=== PATIENT | female | born 1955 | race Caucasian/White ===

== ENCOUNTER 2019-12-09 10:13 | Outpatient (CLI) | payer OTHER, SELFPAY ==
[2019-12-09 10:55] LABS: Hemoglobin A1C 5.3 % (<5.7)
[2019-12-09 10:56] LABS: Alanine Aminotransferase 33 U/L (4-35); Albumin Level 4.4 g/dL (3.5-5.1); Alkaline Phosphatase 48 U/L (38-126); Anion Gap 7 mmol/L (8-16); Aspartate Amino Transferase 32 U/L (14-36); Bilirubin,Total 0.8 mg/dL (0.2-1.3); Blood Urea Nitrogen 14 mg/dL (7-17); Calcium 9.9 mg/dL (8.4-10.2); Carbon Dioxide 33 mmol/L (22-30); Chloride 104 mmol/L (98-107); Cholesterol 213 mg/dL (0-200); Estimated Glomerular Filt Rate > 60; Glucose 112 mg/dL (65-105); HDL Direct 39 mg/dL; Potassium 3.9 mmol/L (3.4-5.0); Sodium 144 mmol/L (137-145); Triglycerides 327 mg/dL (<150)
[2019-12-09 11:08] LABS: LDL Cholesterol Direct 112 mg/dL
[2019-12-09 11:30] LABS: Vitamin D 25 Hydroxy 52.4 ng/mL
== END 2019-12-09 10:14 | disposition home or self-care (01) ==
LOC: ANHLAB 10:15
PROVIDERS: PCP Internal Medicine; Visit Provider Nurse Practitioner
DX: E78.5 Hyperlipidemia, unspecified (principal); M81.0 Age-related osteoporosis without current pathological fracture; E03.9 Hypothyroidism, unspecified; R73.01 Impaired fasting glucose
CPT/HCPCS: 36415; 80053; 80061; 82306; 83036; 84443

== ENCOUNTER 2019-12-20 12:56 | Outpatient (CLI) | payer OTHER, SELFPAY ==
--- NOTE | ~2019-12-20 | MR_ITS ---
EXAMINATION: MR cervical spine wo con DATE: 12/20/2019 13:52 INDICATION: Cervical radiculopathy. TECHNIQUE: Magnetic resonance imaging (MRI) of the cervical spine was performed without intravenous c ontrast. Sequences included sagittal T2-weighted FSE, sagittal STIR FSE, sagittal T1-weighted FSE, ax ial MERGE, and axial T2-weighted FSE. COMPARISON: None FINDINGS: There is 13 degrees levoscoliosis of cervical spine. There is a segmentation anomaly at C5- C6 with interbody fusion and fusion of the right facet joint. Vertebral body heights are normal. Ther e is severely decreased disc height at C4-C5. The spinal cord signal intensity is normal. The followi ng disc levels are specifically discussed: C2-C3: The disc does not extend beyond the endplate margin. There is no uncovertebral joint osteoarth ritis. There is ankylosis of right facet joint with mild hypertrophy. There is no neural foraminal st enosis. There is no central canal stenosis. C3-C4: The disc does not extend beyond the endplate margin. There is no uncovertebral joint osteoarth ritis. There is mild right facet joint osteoarthritis. There is ankylosis of left facet joint with mi ld hypertrophy. There is no neural foraminal stenosis. There is no central canal stenosis. C4-C5: The disc is bulging. There is severe right and mild left uncovertebral joint osteoarthritis. T here is mild right facet joint osteoarthritis. There is severe right neural foraminal stenosis. There is mild central canal stenosis with ventral indentation of the spinal cord. C5-C6: The disc does not extend beyond the endplate margin. There is no uncovertebral joint osteoarth ritis. There is no facet joint hypertrophy. There is no neural foraminal stenosis. There is no centra l canal stenosis. C6-C7: The disc does not extend beyond the endplate margin. There is mild left uncovertebral joint os teoarthritis. There is severe right facet joint osteoarthritis. There is mild bilateral neural forami nal stenosis. There is no central canal stenosis. C7-T1: The disc does not extend beyond the endplate margin. There is no uncovertebral joint osteoarth ritis. There is severe right and mild left facet joint osteoarthritis. There is mild bilateral neural foraminal stenosis. There is no central canal stenosis. IMPRESSION: 1. Severe cervical spondylosis. 2. 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 Ankylosis of facet joints at C2-C3 and C3-C4. Reviewed, dictated and finalized at location A.
== END 2019-12-20 12:57 | disposition home or self-care (01) ==
PROVIDERS: PCP Internal Medicine; Visit Provider Internal Medicine
DX: M47.22 Other spondylosis with radiculopathy, cervical region (principal)
CPT/HCPCS: 72141

== ENCOUNTER 2019-12-23 15:54 | Outpatient (CLI) | payer OTHER, SELFPAY ==
--- NOTE | ~2019-12-23 | MM_ITS ---
EXAMINATION: MM screening [facility] BI w [place] HISTORY: Screening mammogram TECHNIQUE: Craniocaudal and mediolateral oblique 3-D tomosynthesis images were obtained and synthetic 2-D images were generated. CAD analysis was submitted and interpreted. COMPARISON: Comparison to multiple prior studies sequentially, with oldest reviewed study dated 06/22. BREAST PARENCHYMAL COMPOSITION: There are scattered areas of fibroglandular density. FINDINGS: No significant change to benign-appearing bilateral breast nodules. There is no evidence of suspicious mass, calcification, or architectural distortion to suggest malignancy in either breast. There has been no suspicious interval change. IMPRESSION: 1. No mammographic evidence of malignancy. 2. Recommend routine screening mammography in one year. BI-RADS Category 2: Benign finding(s). Reviewed, dictated and finalized at location A. S MANAGER
== END 2019-12-23 15:55 | disposition home or self-care (01) ==
LOC: ANHIMG 15:56
PROVIDERS: PCP Internal Medicine; Visit Provider Internal Medicine
DX: Z12.31 Encounter for screening mammogram for malignant neoplasm of breast (principal)
CPT/HCPCS: 77063; 77067

== ENCOUNTER 2020-09-03 11:50 | Outpatient (CLI) | payer OTHER, SELFPAY ==
--- NOTE | ~2020-09-03 | DEXA_ITS ---
Bone Density Report Name: Laura Frey Age: 65 Sex: Female Ethnicity: White Date of : 1955 Indication: osteopenia; monitoring treatment; hyperparathyroidism; parental hip fracture; postmenopausal Referring Provider: Indy Vizcarra Study: Bone densitometry was performed. Exam Date: September 03, 2020 Accession number: [id number] Bone Density: Region BMD T-score Z-score Classification AP Spine (L2, L3) 0.930 -1.2 0.6 Osteopenia Femoral Neck (Left) 0.542 -2.8 -1.3 Osteoporosis Total Hip (Left) 0.877 -0.5 0.6 Normal Total Hip Bilateral Avg 0.872 -0.6 0.6 Normal Femoral Neck (Right) 0.778 -0.6 0.8 Normal Total Hip (Right) 0.866 -0.6 0.5 Normal World Health Organization criteria for BMD impression classify patients as: Normal (T-score at or above -1.0), Osteopenia (T-score between -1.0 and -2.5), or Osteoporosis (T-score at or below -2.5). 10-year Fracture Risk: FRAX not reported because: Some T-score for Spine Total or Hip Total or Femoral Neck at or below -2.5 Treated for osteoporosis Previous Exams: Region Exam Age BMD T-score BMD Change BMD Change Date g/cm2 vs Baseline vs Previous AP Spine(L2, L3) 09/03/2020 65 0.930 -1.2 -0.021(-2.2%)# 0.059(6.8%)* 04/02/2015 59 0.871 -1.7 -0.080(-8.4%)# -0.080(-8.4%)# 01/26/2008 52 0.951 -1.0 Total Hip(Left) 09/03/2020 65 0.877 -0.5 0.134(18.0%)# 0.035(4.1%)* 07/15/2018 62 0.843 -0.8 0.099(13.4%)# 0.109(14.8%)* 04/02/2015 59 0.734 -1.7 -0.009(-1.3%)# -0.009(-1.3%)# 01/26/2008 52 0.743 -1.6 Total Hip(Right) 09/03/2020 65 0.866 -0.6 0.067(8.4%)# 0.019(2.2%) 07/15/2018 62 0.847 -0.8 0.049(6.1%)# 0.069(8.8%)* 04/02/2015 59 0.779 -1.3 -0.020(-2.5%)# -0.020(-2.5%)# 01/26/2008 52 0.799 -1.2 *Denotes significance at 95% confidence level, LSC for AP Spine = 0.022 g/cm2, LSC for Total Hip = 0.027 g/cm2 Clinical Information Provided by Patient: Parent has had a hip fracture Is being treated for osteoporosis Has used the following medications: Vitamin D, Calcium Has the following medical conditions: Hyperparathyroidism Patient maximum height was 68.5 Menopause Age: 52 No regular weight bearing exercise Does not regularly consume dairy products Onset of menses at age 13 Number of children 2 Impression: The patient has osteoporosis, based on the Left Femoral Neck T-score. The patient has risk factors, including: parental hip fracture. No signi
== END 2020-09-03 11:51 | disposition home or self-care (01) ==
LOC: ANHIMG 11:51
PROVIDERS: PCP Internal Medicine; Visit Provider Nurse Practitioner
DX: M81.0 Age-related osteoporosis without current pathological fracture (principal); M85.88 Other specified disorders of bone density and structure, other site
CPT/HCPCS: 77080

== ENCOUNTER → 2020-10-23 02:36 | Outpatient (CLI) | payer OTHER, SELFPAY ==
[2020-10-23 19:55] LABS: SARS-CoV-2 RNA PCR Negative
== END ==
PROVIDERS: PCP Internal Medicine; Visit Provider Nurse Practitioner
DX: Z20.822 Contact with and (suspected) exposure to COVID-19 (principal)
CPT/HCPCS: C9803; U0003; U0005

== ENCOUNTER → 2020-11-03 02:35 | Outpatient (CLI) | payer OTHER, SELFPAY ==
[2020-11-03 19:28] LABS: SARS-CoV-2 RNA PCR Positive
== END ==
PROVIDERS: Nurse Practitioner; PCP Internal Medicine; Visit Provider Internal Medicine
DX: U07.1 COVID-19 (principal)
CPT/HCPCS: C9803; U0003; U0005

== ENCOUNTER 2020-11-07 09:33 | Outpatient (RCR) | payer OTHER, SELFPAY ==
[2020-11-07] MEDS: ACETAMINOPHEN 325 MG TABLET 650 MG PO (14:03)
[2020-11-07] MEDS: FAMOTIDINE 20 MG TABLET PO (14:03)
[2020-11-07 14:43] VITALS: BP 132/76; PULSE 89; RESP 20; TEMP 37; O2SAT 96
--- NOTE | 2020-11-07 15:01 | PCDIET ---
patient refused Benadryl related to her hypothyroidism.
[2020-11-07 15:41] VITALS: BP 127/81
== END 2020-11-07 15:20 | disposition home or self-care (01) ==
LOC: AMCINF 09:33
PROVIDERS: PCP Nurse Practitioner; Referring Provider Nurse Practitioner; Visit Provider Internal Medicine Hematology & Oncology
DX: Z23 Encounter for immunization (principal); U07.1 COVID-19; I25.10 Atherosclerotic heart disease of native coronary artery without angina pectoris
CPT/HCPCS: A9270; J7050; M0243

== ENCOUNTER → 2021-02-15 00:52 | Outpatient (CLI) | payer OTHER, SELFPAY ==
[2021-02-15 19:19] LABS: SARS-CoV-2 RNA PCR Negative
== END ==
PROVIDERS: PCP Nurse Practitioner
DX: R68.89 Other general symptoms and signs (principal); Z20.822 Contact with and (suspected) exposure to COVID-19
CPT/HCPCS: C9803; U0003; U0005

== ENCOUNTER 2021-07-24 08:35 | Outpatient (CLI) | payer MEDICARE, MEDICAID, SELFPAY ==
--- NOTE | ~2021-07-24 | US_ITS ---
US abdomen limited INDICATION: Left upper abdominal pain PROCEDURE: Realtime left upper abdominal ultrasound. COMPARISON: No prior studies for comparison. FINDINGS: Splenic echotexture is normal without mass. Spleen measures 11.4 cm in length. There is a s mall left renal cyst. No solid masses, hydronephrosis or renal stones. Left kidney measures 13.7 cm i n length. No ascites. IMPRESSION: 1: No significant abnormality of the left upper abdomen is identified. Reviewed, dictated and finalized at location A.
== END 2021-07-24 08:36 | disposition home or self-care (01) ==
LOC: ANHIMG 08:41
PROVIDERS: PCP Nurse Practitioner; Visit Provider Nurse Practitioner
DX: R10.12 Left upper quadrant pain (principal)
CPT/HCPCS: 76705

== ENCOUNTER → 2021-08-06 00:19 | Outpatient (CLI) | payer MEDICARE, MEDICAID, SELFPAY ==
[2021-08-06 16:55] LABS: SARS-CoV-2 RNA PCR Positive
== END ==
PROVIDERS: PCP Internal Medicine; Visit Provider Internal Medicine
DX: U07.1 COVID-19 (principal)
CPT/HCPCS: C9803; U0003; U0005

== ENCOUNTER 2021-08-21 16:16 | Outpatient (CLI) | payer MEDICARE, MEDICAID, SELFPAY ==
--- NOTE | ~2021-08-21 | MM_ITS ---
EXAMINATION: MM screening [facility] BI w [place] HISTORY: Screening TECHNIQUE: Craniocaudal and mediolateral oblique 3-D tomosynthesis images were obtained and synthetic 2-D images were generated. CAD analysis was submitted and interpreted. COMPARISON: Comparison to multiple prior studies sequentially, with oldest reviewed study dated 09/2015. BREAST PARENCHYMAL COMPOSITION: There are scattered areas of fibroglandular density. FINDINGS: There is no evidence of suspicious mass, calcification, or architectural distortion to sugg est malignancy in either breast. There has been no suspicious interval change. IMPRESSION: 1. No mammographic evidence of malignancy. 2. Recommend routine screening mammography in one year. BI-RADS Category 1: Negative Reviewed, dictated and finalized at location A.
== END 2021-08-21 16:17 | disposition home or self-care (01) ==
PROVIDERS: PCP Internal Medicine; Visit Provider Nurse Practitioner
DX: Z12.31 Encounter for screening mammogram for malignant neoplasm of breast (principal)
CPT/HCPCS: 77063; 77067

== ENCOUNTER 2022-08-18 12:46 | Outpatient (CLI) | payer MEDICARE, MEDICAID, SELFPAY ==
--- NOTE | ~2022-08-18 | DEXA_ITS ---
Bone Density Report Name: ERNA BURNS Age: 67 Sex: Female Ethnicity: White Date of : 1955 Indication: hyperparathyroidism; parental hip fracture; height loss; inflammatory bowel disease; postmenopausal Referring Provider: URSULA FREEMAN Study: Bone densitometry was performed. Exam Date: August 18, 2022 Accession number: [id number] Bone Density: Region BMD T-score Z-score Classification AP Spine(L1-L4) 0.899 -1.3 0.5 Osteopenia Femoral Neck (Left) 0.551 -2.7 -1.1 Osteoporosis Total Hip (Left) 0.870 -0.6 0.7 Normal Femoral Neck (Right) 0.675 -1.6 0.0 Osteopenia Total Hip (Right) 0.863 -0.6 0.6 Normal Total Hip Mean 0.866 -0.6 0.7 Normal World Health Organization criteria for BMD impression classify patients as: Normal (T-score at or above -1.0), Osteopenia (T-score between -1.0 and -2.5), or Osteoporosis (T-score at or below -2.5). 10-year Fracture Risk: FRAX not reported because: Some T-score for Spine Total or Hip Total or Femoral Neck at or below -2.5 Previous Exams: Region Exam Age BMD T-score BMD Change BMD Change Date g/cm2 vs Baseline vs Previous Total Hip(Left) 08/18/2022 67 0.870 -0.6 0.136 (18.5%)* -0.008 (-0.9%) 09/03/2020 65 0.877 -0.5 0.144 (19.6%)* 0.035 (4.1%)* 07/15/2018 62 0.843 -0.8 0.109 (14.8%)* 0.109 (14.8%)* 04/02/2015 59 0.734 -1.7 Total Hip(Right) 08/18/2022 67 0.863 -0.6 0.084 (10.8%)* -0.003 (-0.4%) 09/03/2020 65 0.866 -0.6 0.087 (11.2%)* 0.019 (2.2%) 07/15/2018 62 0.847 -0.8 0.069 (8.8%)* 0.069 (8.8%)* 04/02/2015 59 0.779 -1.3 *Denotes significance at 95% confidence level, LSC for Total Hip = 0.027 g/cm2 Clinical Information Provided by Patient: Parent has had a hip fracture Has used the following medications: Vitamin D Has the following medical conditions: Inflammatory bowel diseases, Hyperparathyroidism Patient maximum height was 68.5 Menopause Age: 52 No regular weight bearing exercise Does not regularly consume dairy products Onset of menses at age 13 Number of children 2 Impression: The patient has osteoporosis, based on the Left Femoral Neck T-score. The patient has risk factors, including: parental hip fracture. No significant bone loss was observed. Discussion: INCREASED RISK OF FRACTURE. BONE DENSITY IS UNDESIRABLY LOW AT ONE OR MORE SKELETAL SITES, CONSISTENT WITH POSTMENOPAUSAL OSTEOPOROSIS. This patient's lowest T-score meets the World Health Organization's (WHO) cri
== END 2022-08-18 12:47 | disposition home or self-care (01) ==
LOC: ANHIMG 12:48
PROVIDERS: PCP Family Medicine; Visit Provider Family Medicine
DX: M81.0 Age-related osteoporosis without current pathological fracture (principal); M85.88 Other specified disorders of bone density and structure, other site; M85.851 Other specified disorders of bone density and structure, right thigh
CPT/HCPCS: 77080

== ENCOUNTER 2023-11-26 14:45 | Outpatient (CLI) | payer MEDICARE, MEDICAID, SELFPAY ==
--- NOTE | ~2023-11-26 | MM_ITS ---
EXAMINATION: MM screening [facility] BI w [place] HISTORY: Screening TECHNIQUE: Craniocaudal and mediolateral oblique 3-D tomosynthesis images were obtained and synthetic 2-D images were generated. CAD analysis was submitted and interpreted. COMPARISON: Comparison to multiple prior studies sequentially, with oldest reviewed study dated 09/2015. BREAST PARENCHYMAL COMPOSITION: There are scattered areas of fibroglandular density. FINDINGS: There is no evidence of suspicious mass, calcification, or architectural distortion to sugg est malignancy in either breast. There has been no suspicious interval change. IMPRESSION: 1. No mammographic evidence of malignancy. 2. Recommend routine screening mammography in one year. BI-RADS Category 1: Negative Reviewed, dictated and finalized at location B.
== END 2023-11-26 14:46 | disposition home or self-care (01) ==
PROVIDERS: PCP Family Medicine; Visit Provider Family Medicine
DX: Z12.31 Encounter for screening mammogram for malignant neoplasm of breast (principal)
CPT/HCPCS: 77063; 77067

== ENCOUNTER 2024-05-30 16:02 | Outpatient (CLI) | payer MEDICARE, MEDICAID, SELFPAY ==
--- NOTE | ~2024-05-30 | XR_ITS ---
XR tibia fibula LT 2V 05/30/2024 16:42 Indication: Follow-up left leg fractures Procedure: 2 views left tibia/fibula Comparison: No prior studies for comparison. Findings: There is a tibial diaphyseal comminuted minimally displaced fracture transfixed by intramed ullary ruben with 2 proximal and 2 distal interlocking screws. Fracture fragments in near-anatomic alig nment. There is a comminuted distal fibular metadiaphyseal fracture with mild ventral displacement. N o significant callus formation at the fibular fracture. Impression: 1: Near-anatomic alignment of distal tibial diaphyseal fracture transfixed by intramedullary ruben. 2: Mildly displaced comminuted extra-articular fracture distal fibular metadiaphysis. Reviewed, dictated and finalized at location A. Impression: 1: Near-anatomic alignment of distal tibial diaphyseal fracture transfixed by i ntramedullary ruben. 2: Mildly displaced comminuted extra-articular fracture distal fibular metadia physis.
--- NOTE | ~2024-05-30 | XR_ITS ---
Lumbosacral Spine: AP and lateral views Clinical History: Pain Findings: There is mild levoscoliosis. No fracture or subluxation evident. There are mild degenerativ e changes. There is moderate facet arthropathy at the lower lumbar spine. There are 2 rounded soft ti ssue calcifications in the right mid abdomen. The sacroiliac joints are normally outlined. Impression: [id number] degenerative spondylosis. 2 rounded calcifications in the right mid abdomen. Correlate for cholelithiasis versus nephrolithiasi s. Reviewed, dictated and finalized at location M. Impression: [id number] degenerative spondylosis. 2 rounded calcifications in the right mid abdomen. Correlate for cholelithiasis versus nephrolithiasis.
--- NOTE | ~2024-05-30 | XR_ITS ---
Supine and upright views of the abdomen Clinical history: Abdominal pain Findings: Bowel gas pattern is nonspecific. No evidence for obstruction or free air. 2 round calcific ations and right upper quadrant suggest gallstones. Osseous structures are intact. Impression: Probable cholelithiasis versus possibly nephrolithiasis. Right upper quadrant ultrasound should be co nsidered for further evaluation. Reviewed, dictated and finalized at [facility]. Impression: Probable cholelithiasis versus possibly nephrolithiasis. Right upper quadrant u ltrasound should be considered for further evaluation.
== END 2024-05-30 16:03 | disposition home or self-care (01) ==
LOC: MICIMG 16:09
PROVIDERS: PCP Family Medicine; Visit Provider Family Medicine
DX: S82.832A Other fracture of upper and lower end of left fibula, initial encounter for closed fracture (principal); K59.00 Constipation, unspecified; M54.50 Low back pain, unspecified; X58.XXXA Exposure to other specified factors, initial encounter; M47.896 Other spondylosis, lumbar region
CPT/HCPCS: 72100; 73590; 74021

== ENCOUNTER 2024-09-01 08:01 | Outpatient (CLI) | payer MEDICARE, MEDICAID, SELFPAY ==
--- NOTE | ~2024-09-01 | CT_ITS ---
CT of the Abdomen and Pelvis: Indication: Diarrhea Technique: 2.5 mm axial scans were obtained through the abdomen and pelvis following intravenous adm inistration of 100 cc of Omnipaque 350. Dose reduction technique was used on this scan by utilizing a utomated exposure control and iterative reconstruction technique. The dose-length product (DLP) was 1 414.03 mGy-cm. Findings: Scans through the lung bases are unremarkable. The liver, spleen, pancreas, adrenals and kidneys are within normal limits. Calcified gallstone prese nt. No evidence of aortic aneurysm. No lymphadenopathy. No bowel obstruction or bowel wall thickening. There is no evidence to suggest acute appendicitis. Images through the pelvis were performed. Urinary bladder unremarkable. No pelvic mass seen. No ascit es. Impression: No acute abnormality. Cholelithiasis. Reviewed, dictated and finalized at location . Impression: No acute abnormality. Cholelithiasis.
--- OUTSIDE RECORDS SUMMARY | 2024-09-01 08:07 | XMS_ITS | Clinical Summary ---
Author Organization [facility] [employer] Address [address] [place] [address] Care Team Providers Care It Desktop Support Specialist Name Role Phone Cortes Zapata MD Primary Care Provider [phone] Source Comments [facility] [employer]non-owned Affiliates and Associated Physician Practices is amultiple site organization consisting of ambulatory clinics and hospital sitesin [place], [place], [place]. This disclosure is being madepursuant to the Care Everywhere program and may not contain all information available regarding this patient. Last updated 17.[facility] [employer] Allergies Active Allergy Reactions Criticality Noted Date Comments Sulfa Drugs Skin Reactions Low 03/31/2017 Other reaction(s): Other (See Comments) [place] with urination Tetracycline Rash,Unknown Medium 01/18/2016 Medications * Be aware that medications may not be up to date on this document. Alwaysverify current medications with the patient. famotidine (PEPCID) 40 MG tablet Take 40 mg by mouth as needed for Heartburn Active aspirin EC (Ecotrin) 81 MG tablet Take 1 tablet every day by oral route. Active levothyroxine (Synthroid) 125 MCG tabletIndicati ons:Hypothyroi dism Take 1 (one) tablet by mouth daily before breakfast Reasons: Underactive Thyroid Active vitamin D, ergocalciferol , (Drisdol) 1.25 MG (07732 UT) capsule Take 5,000 Units by mouth once daily Active ibuprofen (Motrin) 200 MG tabletIndicati ons:Arthritis Take by mouth every 6 hours as needed for Pain Reasons: Arthritis Active Bicknell-3 Fatty Acids (Fish Oil) 1200 MGIndications: Hyperlipidemia Take 1 tablet by mouth once daily Reasons: High Amount of Fats in the Blood Active alendronate (FOSAMAX) 70 MG tablet Take 1 (one) tablet by mouth every 7 days before meal Take in morning with full glass of water on empty stomach and remain upright for 30 min 12 tablet 4 9 08/10/19 25 Discontin ued(List Clean-Up) Active Problems Problem Noted Date Diagnosed Date Centrilobular emphysema 07/26/2018 Non morbid obesity 07/26/2018 KELLI (obstructive sleep apnea) 07/26/2018 Acquired hypothyroidism 01/05/2018 Acute non-ST segment elevation myocardial infarc tion 08/06/2017 Dyslipidemia 08/06/2017 Essential hypertension 08/06/2017 History of cardiac catheterization 08/06/2017 Overview (08/10/2023): 2007 and 06/2017- no significant CAD. History of parathyroidectomy 08/06/2017 Overview (08/10/2023): pt followed by environmental intern Primary hyperparathyroidism 06/04/2017 Hypothyroidism Hyperlipidemia Encounters Date Type Department Care Team Description 2024 Travel 08/12/2024 Telephone [facility] - Centralized Scheduling [address] [place] [phone] Wilfredo Calabrese MD Reschedule Appointment 08/11/2024 Telephone [facility] - Centralized Scheduling [address] [place] [phone] Wilfredo Calabrese MD Reschedule Appointment 08/10/2024 Telephone [facility] - Centralized Scheduling [address] [place] [phone] Wilfredo Calabrese MD Reschedule Appointment 08/09/2024 9:20 AM CDT Office Visit [facility] - Endocrinology [address] [place] [phone] Wilfredo Calabrese MD History of parathyroidectomy (Primary Dx); Primary hyperparathyroidism (HCC); Acquired hypothyroidism 08/09/2024 Travel from Last 3 Months Family History Medical History Relation Name Comments CAD (Coronary Artery Disease) Father Arthritis - Osteo Mother CAD (Coronary Artery Disease) Mother COPD - Chronic Obstructive Pulmonary Disease Mother Cancer - Colon Mother Diabetes - Type 2 Mother Renal Disease Mother Thyroid Disease Other cousion Diabetes - Type 1 Paternal Grandmother Diabetes - Type 2 Paternal Uncle Congenital Heart defect Sister Lupus Sister Relation Name Status Comments Father Mother Other cousion Alive Paternal Grandmother Paternal Uncle Sister Alive Social History Tobacco Use Types Packs/Day Years Used Date Smoking Tobacco: Former Smokeless Tobacco: Never Tobacco Cessation:Counseling Given: Not Answered Alcohol Use Standard Drinks/Week Comments No 0 (1 standard drink = 0.6 oz pur e alcohol) PHQ-2 Answer Date Recorded Patient Health Questionnaire-2 Score 0 08/09/2024 Comments No Sex and Gender Information Value Date Recorded Sex Assigned at Not on file Legal Sex Female 3:40 PM [employer]OTIVE [employer]ICE [employer] Gender Identity Not on file Sexual Orientation Not on file Last Filed Vital Signs Vital Sign Reading Time Taken Comments Blood Pressure 134/84 08/09/2024 9:14 AM CDT Pulse 64 08/09/2024 9:14 AM CDT Temperature 36 C (96.8 F) 01/05/2018 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 Respiratory Rate 14 01/05/2018 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 Oxygen Saturation 94% 08/09/2024 9:14 AM CDT Inhaled Oxygen Concentration - - Weight 107.5 kg (237 lb) 08/09/2024 9:14 AM CDT Height 172.7 cm (5' 8) 01/17/2019 3:34 PM AUTOMOTIVE SERVICE DIRECTOR Body Mass Index 36.04 01/17/2019 3:34 PM AUTOMOTIVE SERVICE DIRECTOR Plan of Treatment Upcoming Encounters Date Type Department Care Team (Late st Contact Info) Description 02/10/2025 11:00 AM AUTOMOTIVE SERVICE DIRECTOR Office Visit [facility] - Endocrinology [address] [place] [address], [place] [phone] Wilfredo Calabrese MD [address] [place] [address] [place] [phone] Health Maintenance Due Date Last Done Comments BONE DENSITY TESTING 1955 COLOGUARD (AGES 45-75) - COL ON CA SCREENING 1956 COLON MONITORING 1956 COLONOSCOPY - COLON CA SCREENING 1956 CT COLONOGRAPHY - COLON CA SCREENING 1956 Colorectal Cancer Screening 1956 FIT - COLON CA SCREENING 1956 FLEX SIG - COLON CA SCREENING 1956 MAMMOGRAM 1955 MEDICARE AWV 12 MONTHS 1956 HEPATITIS C SCREENING 08/13/1974 DTAP/TDAP/TD VACCINES (1 - Tdap) 08/18/1975 PNEUMOCOCCAL VACCINE 50+ (1 of 2 - PCV) 08/18/1975 ZOSTER VACCINE (1 of 2) 2006 Respiratory Syncytial Virus (RSV) Vaccine Pt: or over 60 yrs (1 - Risk 60-74 years 1-dose series) 2016 COVID-19 VACCINE ( - 2023-2 5 season) 2023 INFLUENZA VACCINE (#1) 2024 DEPRESSION SCREENING Completed 08/09/2024 HEPATITIS B VACCINE Aged Out No longe r eligible based on patient's age to complete this topic HIB VACCINE Aged Out No longer eligi ble based on patient's age to complete this topic HPV VACCINE Aged Out No longer eligi ble based on patient's age to complete this topic MENINGOCOCCAL (Group B) VACC INE SHARED DECISION-MAKING Aged Out No longer eligibl e based on patient's age to complete this topic MENINGOCOCCAL GROUPS A/C/Y/W VACCINE Aged Out No longer eligible b ased on patient's age to complete this topic Insurance MEDICARE MEDICARE MEDICAID - OUT OF STATE Advance Directives * Full Code (Latest Code Status on File) Date Activated Date Inactivated Comments 06/04/2017 5:15 PM 06/05/2017 3:30 PM * Full Code Date Activated Date Inactivated Comments 06/04/2017 11:14 AM 06/04/2017 5:15 PM Care Teams It Desktop Support Specialist Relationship Specialty Start Date End Date Cortes Zapata MD [address] [place] [phone] PCP - General Family Medicine 04/20/23
--- OUTSIDE RECORDS SUMMARY | 2024-09-01 08:07 | XMS_ITS | Data Portability ---
Author Organization [place] - [facility] OFFICE Address [address] [place] [id number] Care Team Providers Care Assistant Health Educator Name Role Phone JEAN PIERRE SURESH Primary Care Provider Assessment No assessment recorded. Plan of Treatment Reminders Order Date Submit Date Provider Last Modified By Organization Details Last Modified Time Details Appointments None recorded . Lab None recorded . Referral None recorded . Procedures None recorded . Surgeries None recorded . Imaging electroc ardiogra m 2017 018 nurbanski Not available 8 18:07:38 electroc ardiogra m 2017 018 [email or web address] Not available 8 14:05:28 electroc ardiogra m 2017 018 RERE Not available 8 16:13:09 Medication Orders simvasta tin 40 mg tablet 2017 018 [facility] [id number], [address], 8 18:07:39 metoprol ol succinat e ER 25 mg tablet,e xtended release 24 hr 2017 018 [facility] [address], [address], 8 18:07:40 simvasta tin 40 mg tablet 2017 018 [email or web address] [facility] [address], [address], 8 17:11:32 Livalo 2 mg tablet 2017 018 nleinicke [facility] In [facility], [address] [place], [address], 8 15:15:50 Vascepa 1 gram capsule 2017 018 apeludat [facility] In [facility], [address] [place], [address], 8 15:46:10 Patient TargetsNo targets recorded. Patient Instructions Encounter Date Encounter Id Patient Instructions Last Modified By Organization Details Last Modified Time 08/06/2017 [id number] high blood pressure: care instructions [email or web address] Not available 08/06/2017 16:35:12 learning about high blood pressure nurbanski Not available 08/06/2017 16:35:12 This document wa s scribed by Arlette Godoy PA-C. [email or web address] Not available 08/06/2017 15:24:00 10/08/2017 [id number] high blood pressure: care instructions apeludat Not available 10/08/2017 16:05:25 learning about high blood pressure apeludat Not available 10/08/2017 16:05:25 Weight loss, 20 pounds Exercise advised Low cholesterol diet advised Low sodium diet advised. Patient was seen and evaluated by Arlette Godoy PA-C. Plan of care was discussed with collaborating physician. Note cosigned by Oscar Arellano MD. apeludat Not available 10/08/2017 16:34:22 01/28/2018 [id number] high blood pressure: care instructions [email or web address] Not available 01/28/2018 18:07:38 learning about high blood pressure nurbanski Not available 01/28/2018 18:07:38 Reason for Referral None Reported. Results Created Date Observation Date Name Description Value Unit Range Abnormal Flag Note LastModifiedBy Organization Detail LastModifiedTime 08/07/19 18 08/06/2017 chantal leong diogr am Result EKG (08/06): NSR, IRBBB, NSSTch anges Not Available Oscar Arellano MD [address], [place], [address], 08/06/2017 14:59:44 01/29/20 18 01/28/2018 elect rocar diogr am Result EKG ;Incom plete rbbb Invert ed T waves, anteri or leads. Not Available Oscar Arellano MD [address], [place], [address], 01/28/2018 17:13:28 07/21/19 18 07/09/2017 trans -thor acic echoc ardio gram (TTE) (PROC ) No observ ation record ed. [facility] [address], [place], [address], 10/08/2017 14:04:04 08/07/19 18 08/06/2017 elect rocar diogr am No observ ation record ed. [email or web address] Not Available 2017 10:33:43 08/08/19 18 08/06/2017 elect rocar diogr am No observ ation record ed. [email or web address] Not Available 2017 09:33:12 09/19/19 18 07/09/2017 elect rocar diogr am No observ ation record ed. [email or web address] Not Available 2017 14:15:10 01/30/20 18 01/28/2018 elect rocar diogr am No observ ation record ed. [email or web address] Not Available 2017 11:17:17 Result Notes None recorded. Problems Name Problem SNOMED Code Status Onset Date Resolution Date Notes Provider Name and Address Organization Details Recorded Time Ex-smoker 6508084 Active 2017 Arya duran [place] - [facility] 8 14:03:47 Chest pain 45730934 Active 2017 Arya duran [place] - [facility] 8 14:04:03 Pulmonary embolism 28542622 Active 2007 Michi duran, [place] - [facility] 8 15:47:24 Hypothyro idism 57306342 Active 2017 Arya duran [place] - [facility] 8 14:04:46 History of cardiac catheteri zation 997653564177 00 Active 2017 and 06/2017- no significa nt CAD. Arlette Godoy [facility] 8 15:06:16 History of parathyro idectomy 111320045592 103 Active 2017 pt followed by endocrino logist Michi Agudelo [facility] 8 16:00:22 Acute non-ST segment elevation myocardia l infarctio n 949289810 Active 2017 Indra Mcdermott [facility] 8 01:57:10 Dyslipide [place] 920520572 Active 2017 Indra Mcdermott [facility] 8 01:57:18 Essential hypertens ion 56146103 Active 2017 Arlette Godoy [facility] 8 15:05:46 Former heavy tobacco smoker 071816897057 100 Active 2017 Arlette Godoy [facility] 8 16:34:47 Problem Notes None recorded. Medical Equipment None Reported. Allergies Allergen ID Allergen Name Allergen Category Reaction Reaction Severity Criticality Documentation Date Start Date Code Code System Note Provider Name and Address Organization Details Recorded Time 6346 Substance with sulfonami de structure and antibacte rial mechanism of action (substanc e) medicatio n Not available Not available Not available 08/06/2017 84883 8003 SNOMED Indra Mcdermott [facility] 8 01:58:22 6347 tetracycl ine medicatio n Not available Not available Not available 08/06/2017 97508 RxNorm Indra Mcdermott [facility] 8 01:58:36 Medications Name Sig Start Date Stop Date Status Note LastModified by Organization Details LastModified Time losartan 50 mg tablet Take 1 tablet every day by oral route. 10/08 completed Not Available Not Available Not Available cyclobenzap rine 10 mg tablet 08/06 completed Not Available Not Available Not Available Tylenol 500 mg capsule Take 2 tablets every 4 hours by oral route. active Not Available Not Available No t Available hydrocodone 5 mg-acetamin ophen 325 mg tablet PRN active Not Available Not Available No t Available famotidine 40 mg tablet active Not Available Not Available Not Available Calcium Antacid 200 mg (as calcium carbonate 500 mg) chewable tablet 08/06 completed Not Available Not Available Not Available clopidogrel 75 mg tablet Take 1 tablet every day by oral route. 10/08 completed Not Available Not Available Not Available simvastatin 80 mg tablet 08/06 completed Not Available Not Available Not Available aspirin 81 mg tablet,sanchez yed release Take 1 tablet every day by oral route. active Not Available Not Available No t Available simvastatin 40 mg tablet Take 1 tablet every day by oral route. 2017 active Not Available Not Available Not Avai lable hyoscyamine sulfate 0.125 mg tablet active Not Available Not Available Not Available prednisone 50 mg tablet 08/06 completed Not Available Not Available Not Available Mapap (acetaminop hen) 325 mg tablet 08/06 completed Not Available Not Available Not Available aspirin 81 mg chewable tablet 08/06 completed Not Available Not Available Not Available metoprolol succinate ER 25 mg tablet,exte nded release 24 hr TAKE ONE TABLET BY MOUTH ONCE DAILY 2017 active Not Available Not Available Not Avai lable levothyroxi ne 112 mcg tablet Take 1 tablet every day by oral route. active Not Available Not Available No t Available Pepcid AC 20 mg tablet Take 1 tablet 3 times a day by oral route. 08/06 completed Not Available Not Available Not Available ClearLax 17 gram/dose oral powder 08/06 completed Not Available Not Available Not Available Livalo 2 mg tablet Take 1 tablet every day by oral route. 10/08 completed Not Available Not Available Not Available Vascepa 1 gram capsule Take 2 capsules twice a day by oral route. 10/08 completed Not Available Not Available Not Available Multi Vitamin active Not Available Not Available Not Available Vitals Date Recorded Body weight Body mass index (BMI) Body height Heart rate Oxygen saturation Oxygen saturation in Arterial blood by Pulse oximetry Systolic And Diastolic Provider Name and Address Organization Details Last Updated DateTime 8 571965. 43 g 35.3 kg/m2 172.72 cm 75 /min 95 % 95 % 120/78 mm[Hg] Ana Lilia Nichole [place] - [facility] 8 14:59:30 Date Recorded Body height Body mass index (BMI) Body weight Heart rate Oxygen saturation Oxygen saturation in Arterial blood by Pulse oximetry Systolic And Diastolic Provider Name and Address Organization Details Last Updated DateTime 8 172.72 cm 35.9 kg/m2 012782. 8 g 70 /min 96 % 96 % 112/76 mm[Hg] Ana Lilia Nichole [facility] 8 15:21:19 Date Recorded Body height Body mass index (BMI) Body weight Heart rate Oxygen saturation Oxygen saturation in Arterial blood by Pulse oximetry Systolic And Diastolic Provider Name and Address Organization Details Last Updated DateTime 8 172.72 cm 37 kg/m2 089044. 02 g 79 /min 95 % 95 % 138/88 mm[Hg] IJEOMA Ryan [facility] 8 17:13:25 Social History Question Answer Notes LastModified by Historic Futures Details LastModified Time Tobacco Smoking Status Former Smoker quit 2007 Not Available [facility] 12/27/2019 03:30:42 What Is Your Level Of Caffeine Consumption? None [id number] Information not available 12/27/2019 How Much Tobacco Do You Chew? None [id number] Information not available 12/27/2019 What Type Of Diet Are You Following? SPECIFIC [id number] Information not available 12/27/2019 Which Illicit Or Recreational Drugs Have You Used? None [id number] Information not available 12/27/2019 Live Alone Or With Others? With Others Information not available 08/06/2017 Marital Status Informatio n not available 08/06/2017 What Was The Date Of Your Most Recent Tobacco Screening? 10/08/2017 [id number] Information not available 12/27/2019 How Many Children Do You Have? 2 [id number] Information not available 12/27/2019 How Much Tobacco Do You Smoke? 2 PPD [id number] Information not available 12/27/2019 How Many Years Have You Smoked Tobacco? 33 [id number] Information not available 12/27/2019 Sex: Unknown Functional Status Question Answer Note LastModified by [employer] Details LastModified Time What is your level of alcohol consumption? Occasional [id number] Information not available 12/27/2019 What is your exercise level? None [id number] Information not available 12/27/2019 Mental Status None recorded. Family History Relationship Description Onset Age of this Age Resolved Age Notes LastModified by Organization Details LastModified Time Father Myocardial infarction 42 [email or web address] Not available 08/06 15:48:26 Mother Chronic obstructive pulmonary disease [email or web address] Not available 2017 14:06:12 Sister Mitral valve prolapse [email or web address] Not available 2017 14:06:30 Medical History No medical history recorded. Gynecological HistoryNo gynecological history recorded. Obstetrics History GPAL:G 0 P 0 0 0 0 Past Encounters Encounter ID Performer Location Encounter Start Date Encounter Closed Date Diagnosis/Indication Diagnosis SNOMED-CT Code Diagnosis ICD10 Code Diagnosis Note [id number] Michi Agudelo MD [facility] [address] [place] [address] 08/06/2017 14:27:34 08/18/2017 14:05:28 Acute non-ST segment elevation myocardial infarction 928778660 I21.4 06/2017 Had TTE done in 07/09/17 showed mild LVH and moderate right ventricula r hypertroph y. Had CATH done in 07/09/17 revealed No significan t coronary artery disease; normal left ventricula r systolic function.c ont medical management and risk factor modificati on Dyslipidemia 706048411 E 78.5 Patient's hyperlipid emia is not well-contr olled on present medical therapy. Patient is tolerating , without difficulty , the current medication s. I have made the following changes to the current regimensta rt Pitavastat in 2 mg QD and Vascepa 2000 BID.. Cont low cholestero l diet. Repeat lipids in 4 months. Needs to keep LDL less than 70, and HDL more than 40 07/09/17: TG 303, LDL 117, HDL 33 She stopped Simvastati n 80 mg, due to back pain. Would like lower dose. Essential hypertension 23494527 I10 Patient's blood pressure is well-contr olled on present medical therapy. Patient is tolerating , without difficulty , the current medication s. I have not made changes to the current regimen. Patient was advised to eat a low-sodium diet (2 grams sodium or less daily). Pulmonary embolism 48850 003 I26.99 11/2007onl y episode only [id number] Oscar Arellano MD [facility] [address] [place] [address] 10/08/2017 15:02:50 02/26/2018 10:35:16 Acute non-ST segment elevation myocardial infarction 812483282 I21.4 06/2017 Had Echo on 07/09/17 showing mild LVH and moderate right ventricula r hypertroph y. Had CATH on 07/09/17 revealing no significan t coronary artery disease; normal left ventricula r systolic function. Cont medical management and risk factor modificati on. Will discontinu e Plavix, she has been on it for 3 months and is asymptomat ic and cath showed no significan t CAD. She may have microvascu larization causing the NSTEMI, recommende d starting ASA 81 mg daily for prevention . Dyslipidemia 890183693 E 78.5 Patient's hyperlipid emia is not well-contr olled on present medical therapy. Patient is tolerating , without difficulty , the current medication s. I have made the following changes to the current regimen Needs to keep LDL less than 70, and HDL more than 40 07/09/17: TG 303, LDL 117, HDL 33 Will start on Simvastati n 40 mg once daily and will take Fish Oil daily. Cont low cholestero l diet. Repeat lipids before visit in 3 months. Essential hypertension 19814613 I10 Patient's blood pressure is well-contr olled on present medical therapy. Patient is tolerating , without difficulty , the current medication s. I have made the following changes to the current regimen. Patient is advised to maintain a blood pressure diary. Patient was advised to eat a low-sodium diet (2 grams sodium or less daily). Will stop the Losartan 50 mg and have the patient check her BP daily, she states she is having leg cramping from Losartan and states she has never had HTN before. Pulmonary embolism 60521 003 I26.99 11/2007 only episode only Former hea vy tobacco smoker [id number] 22554 Z87.891 Was smoking 2 PPD, quit 2007. [id number] Michi Agudelo MD [facility] [address] [place] [address] 01/28/2018 16:19:57 01/28/2018 18:07:44 Acute non-ST segment elevation myocardial infarction 286699472 I21.4 06/2017asym ptomatic.H ad Echo on 07/09/17 showing mild LVH and moderate right ventricula r hypertroph y. Had CATH on 07/09/17 revealing no significan t coronary artery disease; normal left ventricula r systolic function. Cont medical management and risk factor modificati on. Will discontinu e Plavix, she has been on it for 3 months and is asymptomat ic and cath showed no significan t CAD. She may have microvascu larization causing the NSTEMI, recommende d starting ASA 81 mg daily for prevention . Dyslipidemia 911928615 E 78.5 Patient's hyperlipid emia is relatively well-contr olled on present medical therapy. Patient is tolerating , without difficulty , the current medication s. I have made the following changes to the current regimen Needs to keep LDL less than 70, and HDL more than 40 07/09/17: TG 303, LDL 117, HDL 33 Will cont on Simvastati n 40 mg once daily and will take Fish Oil daily. Cont low cholestero l diet. Repeat lipids before visit in 3 months. Essential hypertension 02030289 I10 Patient's blood pressure is well-contr olled on present medical therapy. Patient is tolerating , without difficulty , the current medication s. I have made the following changes to the current regimen. Patient is advised to maintain a blood pressure diary. Patient was advised to eat a low-sodium diet (2 grams sodium or less daily). Will stop the Losartan 50 mg and have the patient check her BP daily, she states she is having leg cramping from Losartan and states she has never had HTN before. Pulmonary embolism 83179 003 I26.99 11/2007 only episode only Former hea vy tobacco smoker [id number] 93572 Z87.891 Was smoking 2 PPD, quit 2007. Health Concerns Section Related Observation LastModified by Organization Detai ls LastModified Time None Recorded Concern Status LastModified by Organization Details LastModified Time None Recorded Advance Directives Directive None Recorded Payers Insurance Date Sequence Insurance Name Policy Number Policy Donato Covered Member ID Donato Member ID Guarantor Name 01/25/2018 1 [facility] - DOS PRIOR TO 2020 (MEDICAID REPLACEMENT - HMO) Laura Frey [id number] Laura Hale Notes Date Note Type Note Provider Name and Address Organization Details Recorded Time 08/06/2017 text/html 08/06/17 CC: follow up after dc 61 years-old Female with h/o NSTEMI 07/09/17 s/p normal cath, PE (11/2007), hypertension, dyslipidemia, hypothyroidism s/p parathyroidectomy (05/2017), and former tobacco abuse is here for follow up. She was at [facility] on 07/09/17 for chest heaviness with radiation to back and left arm. She was found to have Non-ST elevation myocardial infarction. She had relief after 2 SL Nitro. Had TTE done in 07/09/17 showed mild LVH and moderate right ventricular hypertrophy. Had CATH done in 07/09/17 revealed No significant coronary artery disease; normal left ventricular systolic function. She was discharged on ASA 81 mg, Simvastatin 80 mg, Plavix and Famotidine. She stopped Simvastatin 80 mg, due to back pain. Would like lower dose of statin. She stopped ASA 81 mg due to causing hemorrhoid to bleed. Since discharge, she has been feeling well without any concerns. She is under increased stress right now with her family. She reports episodes of heart palpitations about once per month when she is under a large amount of stress. pt states that she had parathyroidectomy done 06/10 . she denies any lipid panel to be checked afterwards. She has never been on cholesterol medications. She states that she has changed her PC recently. She had PE in 11/2017, and she believes it was after she feel 04/2017 and injured her back and right knee. She was on Coumadin for 6-8 months No known history of coronary artery disease. Reports history of previous myocardial infarction, 06/2017. No history of heart failure. No known history of valvular heart disease. No known arrhythmia. Patients father at 42 years old from possible DE. The patients mother had tachycardia and later diagnosed with atrial fibrillation at age 80. She feels well overall, denies any concerns or issues at this time.No chest pain. No shortness of breath at rest. No dyspnea on exertion. Reports, occasional palpitations. No orthopnea. No PND's . No lightheadedness or dizziness. No syncope or near syncope. No leg swelling. No nausea and vomiting. No major bleeding events. No side effects from medications. Had TTE done in 07/09/17 showed mild LVH and moderate right ventricular hypertrophy. Had CATH done in 07/09/17 revealed No significant coronary artery disease; normal left ventricular systolic function. Results from this visit, or from the past:07/09/17: TG 303, LDL 117, HDL 33 01/29/17: tsh: 2.67 01/29/17: TR: 407, TC: 230, HDL: 36, LDL: triglycerides too high for accurate LDL 01/29/17: NA: 143, K: 4.5, CL: 103, CO2: 24, GLU: 92, BUN: 9, AST: 33, ALT: 42, CR: 0.66 TTE 07/09/17: Mild LVH EKG (08/06/17): NSR, IRBBB, NSSTchanges Michi Agudelo [facility] 08/06/2017 16:36:10 10/08/2017 text/html 10/08/17 CC: NSTEMI follow up 62 years-old Female with h/o NSTEMI 07/09/17 s/p normal cath, PE (11/2007), hypertension, dyslipidemia, hypothyroidism s/p parathyroidectomy (05/2017), and former tobacco abuse is here for follow up. She was last in our office 2 months ago. Since then, she has been feeling well without any concerns or issues. Previously, she was at [facility] on 07/09/17 for chest heaviness with radiation to back and left arm. She was found to have Non-ST elevation myocardial infarction. She had relief after 2 SL Nitro. Had TTE done in 07/09/17 showed mild LVH and moderate right ventricular hypertrophy. Had CATH done in 07/09/17 revealed No significant coronary artery disease; normal left ventricular systolic function. She was discharged on ASA 81 mg, Simvastatin 80 mg, Plavix and Famotidine. She stopped Simvastatin 80 mg, due to back pain. She stopped ASA 81 mg due to causing hemorrhoid to bleed. She is wondering how long she will need to be on Plavix and if she needed Losartan for blood pressure. She reports never having isuses with HTN before. She reports episodes of heart palpitations about once per month. She has under increased stress right now with her family. Pt states that she had parathyroidectomy in 06/10. She states that she has changed her PC recently. She had PE in 11/2007, and she believes it was after she fell on 04/2007 and injured her back and right knee. She was on Coumadin for 6-8 months, post-PE No known history of coronary artery disease. Reports history of previous myocardial infarction, 06/2017. No history of heart failure. No known history of valvular heart disease. No known arrhythmia. Patients father at 42 years old from possible DE. The patients mother had tachycardia and later diagnosed with atrial fibrillation at age 80. She feels well overall, denies any concerns or issues at this time. No chest pain. No shortness of breath at rest. No dyspnea on exertion. Reports, occasional palpitations. No orthopnea. No PND's . No lightheadedness or dizziness. No syncope or near syncope. No leg swelling. No nausea and vomiting. No major bleeding events. No side effects from medications. Had Echo on 07/09/17 showing mild LVH and moderate right ventricular hypertrophy, mild enlargement of the LA. Had CATH on 07/09/17 revealed No significant coronary artery disease; normal left ventricular systolic function. Results from this visit, or from the past: 07/09/17: TG 303, LDL 117, HDL 33 01/29/17: tsh: 2.67 01/29/17: TR: 407, TC: 230, HDL: 36, LDL: triglycerides too high for accurate LDL 01/29/17: NA: 143, K: 4.5, CL: 103, CO2: 24, GLU: 92, BUN: 9, AST: 33, ALT: 42, CR: 0.66 TTE 07/09/17: Mild concentric LVH, moderate RVH, mild enlargement of the LA. EKG 08/06/2017: Incomplete rbbb; Non-specific Flat T waves, inferior leads; rbbb; NSST changes Oscar Arellano MD [address] [place], [address], [facility] 11/17/2017 02:50:10 01/28/2018 text/html 01/28/18 CC: NSTEMI follow up 62 years-old Female with h/o NSTEMI 07/09/17 s/p normal cath, PE (11/2007), hypertension, dyslipidemia, hypothyroidism s/p parathyroidectomy (05/2017), and former tobacco abuse is here for follow up. pt was last time 3 months ago She brought me her lipid panel which looks much better in comparison to the previous before her parathyroid surgery She was last in our office 2 months ago. Since then, she has been feeling well without any concerns or issues. Previously, she was at [facility] on 07/09/17 for chest heaviness with radiation to back and left arm. She was found to have Non-ST elevation myocardial infarction. She had relief after 2 SL Nitro. Had TTE done in 07/09/17 showed mild LVH and moderate right ventricular hypertrophy. Had CATH done in 07/09/17 revealed No significant coronary artery disease; normal left ventricular systolic function. She was discharged on ASA 81 mg, Simvastatin 80 mg, Plavix and Famotidine. She stopped Simvastatin 80 mg, due to back pain. She stopped ASA 81 mg due to causing hemorrhoid to bleed. She is wondering how long she will need to be on Plavix and if she needed Losartan for blood pressure. She reports never having isuses with HTN before. She reports episodes of heart palpitations about once per month. She has under increased stress right now with her family. Pt states that she had parathyroidectomy in 06/10. She states that she has changed her PC recently. She had PE in 11/2007, and she believes it was after she fell on 04/2007 and injured her back and right knee. She was on Coumadin for 6-8 months, post-PE No known history of coronary artery disease. Reports history of previous myocardial infarction, 06/2017. No history of heart failure. No known history of valvular heart disease. No known arrhythmia. Patients father at 42 years old from possible DE. The patients mother had tachycardia and later diagnosed with atrial fibrillation at age 80. She feels well overall, denies any concerns or issues at this time. No chest pain. No shortness of breath at rest. No dyspnea on exertion. Reports, occasional palpitations. No orthopnea. No PND's . No lightheadedness or dizziness. No syncope or near syncope. No leg swelling. No nausea and vomiting. No major bleeding events. No side effects from medications. Had Echo on 07/09/17 showing mild LVH and moderate right ventricular hypertrophy, mild enlargement of the LA. Had CATH on 07/09/17 revealed No significant coronary artery disease; normal left ventricular systolic function. Results from this visit, or from the past:2017 TG 223, HDL 38, LDL 107, TC : TG 303, LDL 117, HDL 33 01/29/17: tsh: 2.67 01/29/17: TR: 407, TC: 230, HDL: 36, LDL: triglycerides too high for accurate LDL 01/29/17: NA: 143, K: 4.5, CL: 103, CO2: 24, GLU: 92, BUN: 9, AST: 33, ALT: 42, CR: 0.66 TTE 07/09/17: Mild concentric LVH, moderate RVH, mild enlargement of the LA. EKG 01/28/18 ;Incomplete rbbb , NSST changes EKG 08/06/2017: Incomplete rbbb; Non-specific Flat T waves, inferior leads; rbbb; NSST changes Echo 07-09-2017: sinus rhythm low QRS voltage in precordial leads Incomplete right bundle branch block ST-T wave abnormality-consider anteroseptal ischemia abnormal ECG. MARCIA El[facility] - [facility] 01/28/2018 18:07:42 OBGyn Episode No OBEpisode recorded.
--- OUTSIDE RECORDS SUMMARY | 2024-09-01 08:07 | XMS_ITS | Clinical Summary ---
Author Organization [facility] Address [address] [facility], [address] [address] Phone Care Team Providers Care Regional Sales Associate Name Role Phone Dell Smallwood DO Primary Care Provider [phone] Allergies Active Allergy Reactions Criticality Noted Date Comments Sulfa Antibiotics Other (see Comments) 07/02/19 18 Burning urination Tetracycline Rash 07/01/2017 Medications levothyroxine (SYNTHROID) 112 MCG Tablet Take 112 mcg by mouth daily. Active Aspirin 81 MG Tablet Take 81 mg by mouth daily. Active metoprolol Succinate (TOPROL-XL) 25 MG TABLET SR 24 HR Take 25 mg by mouth daily. Active hyoscyamine (LEVSIN) 0.125 MG Tablet Take 1 Tab by mouth every 4 hours as needed for Cramping. 120 Tab 3 8 Active Additional Information Patient not taking.Reported on 06/25/2018 vitamin D (CHOLECALCIFERO L) 1000 UNIT Tablet Take 1,000 Units by mouth daily. Active [place]-3 Fatty Acids (FISH OIL) 1200 MG Capsule Take 1,200 mg by mouth daily. Active calcium carbonate (TUMS) 500 MG Chewable Tablet Take 2 Tabs by mouth as needed. Active alendronate (FOSAMAX) 70 MG Tablet 9 Active Probiotic Product (PROBIOTIC DAILY PO) Take by mouth. Activ e famotidine (PEPCID) 40 MG Tablet Take 1 Tab by mouth 2 times daily. 180 Tab 3 03/29/202 0 Active Active Problems Problem Noted Date Diagnosed Date KELLI (obstructive sleep apnea) 07/26/2018 Non morbid obesity 07/26/2018 Centrilobular emphysema 07/26/2018 Skin lesion 06/25/2018 Family History Medical History Relation Name Comments Diabetes Brother Heart Attack Father Cancer Maternal Grandfather lung Heart Disease Mother a-fib Cancer Other 1 cousin stomach Stroke Other 1 cousin Cancer Other 2 cousin colon Cancer Other 3 cousin colon Diabetes Paternal Grandmother Other-comment Sister heart valve pr olapse Relation Name Status Comments Brother Father Maternal Grandfather Mother Alive Other 1 cousin Other 2 cousin Alive Other 3 cousin Paternal Grandmother Sister Social History Tobacco Use Types Packs/Day Years Used Date Smoking Tobacco: Former Cigarettes 2 20 0 07/02/1987 - 07/02/2007 Smokeless Tobacco: Never Tobacco Cessation:Counseling Given: Yes Alcohol Use Standard Drinks/Week Comments Yes 0 (1 standard drink = 0.6 oz pur e alcohol) rarely Comments No Sex and Gender Information Value Date Recorded Sex Assigned at Not on file Legal Sex Female 3:23 PM CDT Gender Identity Not on file Sexual Orientation Not on file 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 Not on file Not on file Not on file Last Filed Vital Signs Vital Sign Reading Time Taken Comments Blood Pressure 124/80 01/27/2019 1:41 PM BAT CARRIER Pulse 84 01/27/2019 1:41 PM BAT CARRIER Temperature 37.1 C (98.7 F) 01/27/2019 1:41 PM BAT CARRIER Respiratory Rate 18 07/26/2018 1:36 PM CDT Oxygen Saturation 98% 01/27/2019 1:41 PM BAT CARRIER Inhaled Oxygen Concentration - - Weight 106.1 kg (234 lb) 01/27/2019 1:41 PM BAT CARRIER Height 172.7 cm (5' 8) 01/27/2019 1:41 PM BAT CARRIER Body Mass Index 35.58 01/27/2019 1:41 PM BAT CARRIER Plan of Treatment Health Maintenance Due Date Last Done Comments Hepatitis C Virus (HCV) Screening 1955 TdaP Immunization 1955 Pneumococcal Immunization (5 0+ years) (1 of 2 - PCV) 08/18/1975 Cologuard 2001 Immunochemical Fecal Occult Blood 2001 Zoster Immunization (1 of 2) 2006 Respiratory Syncytial Virus (RSV) Immunization (Adult) (1 - Risk 60-74 years 1-dose series) 2016 Colonoscopy 10/14/2022 10/14/2017 Colorectal Cancer Screening 10/14/2022 SARS-COV-2 Immunization ( - season) 2023 Influenza Immunization (#1) 2024 Hepatitis B Immunization Aged Out No longer eligible based on patient's age to complete this topic Human Papillomavirus (HPV) Immunization Aged Out No longer eligible b ased on patient's age to complete this topic Meningococcal Immunization (ACWY) Aged Out No longer eligible based on patient's age to complete this topic Rotavirus Immunization Aged Out No lo nger eligible based on patient's age to complete this topic Insurance MEDICAID [employer] Care Teams Regional Sales Associate Relationship Specialty Start Date End Date Dell Smallwood DO [address] [facility] [address] [place] [address] PCP - General Internal Medicine 10/12/17
[2024-09-01 08:29] LABS: Estimated Glomerular Filt Rate > 60
== END 2024-09-01 08:02 | disposition home or self-care (01) ==
PROVIDERS: PCP Family Medicine; Visit Provider Nurse Practitioner Family
DX: R19.7 Diarrhea, unspecified (principal); R10.9 Unspecified abdominal pain; K80.20 Calculus of gallbladder without cholecystitis without obstruction
CPT/HCPCS: 74177; Q9967

== ENCOUNTER 2024-09-06 12:00 | Outpatient (RCR) | payer MEDICARE, MEDICAID, SELFPAY ==
--- NOTE | 2024-06-14 14:30 | OPREHPOC ---
Outpatient Therapy Plan of Care This is a Multidisciplinary Plan of Care that may contain components documented by all disciplines (PT, OT, and ST.) PT Problem 1 PT Problem #1 Knowledge Deficit PT Goal 1 Goal / Goal Update *independent with HEP Target Visit 10 PT Problem 2 PT Problem #2 Pain PT Goal 1 Goal / Goal Update * pt report pain at worst of L LE 07/02 Target Visit 10 PT Problem 3 PT Problem #3 Impaired Strength PT Goal 1 Goal / Goal Update *increase strength of L LE to gross 4+/5, improve transfer and gait skills Target Visit 10 PT Problem 4 PT Problem #4 Impaired Functional Mobility PT Goal 1 Goal / Goal Update 1* transfer sit/stand without use of UE from 18 seat x 5 reps 2* 2 minute walking test distance of 300', with cane 3* pt report walking short distances in community Target Visit 10
--- NOTE | 2024-06-14 14:30 | PTOPEVAL1 ---
Assessment and note entered by Kiersten Richards PT Evaluation Information Assessment Status Evaluation ICD-10 Condition Codes (PT) Pain in left knee M25.562,Difficulty Walking R26.2 ,Abnormalities of gait and mobility R26.9,Weakness R53.1,Encounter for other orthopedic aftercare Z47.89 Other ICD-10 Condition Codes ( S82.209Atibial fracture;S82.409A fibula fracture- PT) with ORIF Subjective Information fell when in [place]- landed on L butt, fracture of L tibula-fibula with ORIF; also had R ankle sprain, LBP and L hip pain per pt-- no restrictions from ortho dr- can be full WB on her L LE; R ankle xrays negative; using the forearm crutches for walking, stand some without the crutches had some PT in [place]-- doing sitting and supine exercises; activity: retired; prior to fall: independent with all bathing, dressing, home tasks; home with , did not use assistive device, active- yard work; 3 steps into home, with bilateral hand rails & doing OK; NOW- use forearm crutches for walking, in community uses w/c- fear of falling or someone hitting her crutches and making her fall Reported Pain Level Pain Score Self Report Additional Pain Score Comments pain range in the past week 0-10/10: L leg and sciatic pain into L LE increase pain: up on feet/stand/walk 15 minutes decrease pain: tylenol every 4-6 hours, aspirin, muscle cream, ice sleeping: pain does not awaken her ALSO- low back pain, R ankle pain with swelling Assessment PT Clinical Summary Laura is s/p fall with L tib-fib fracture with ORIF on 05-12-24. Prior to fall, she was independent and active, did not use an assistive device. LE functional scale, self rating of 70% limitation in activity level. Since the fall, also has R ankle, low back and L hip pain. present during eval and supportive to pt. With the evaluation, she used the w/c, pushed by her , for entering treatment area; 2 minute walking test distance of 115' with forearm crutches and poor gait pattern--small step length, flexion of trunk and hips; ROM of L hip and knee WNL; gross strength of L LE 4/5; Skilled PT services are indicated for modalities PRN for pain, therapeutic exercises to increase LE strength, transfer and mobility skills, gait training, with progression to lesser assistive device as tolerated. Education for progression of HEP. Plan of Care Interventions Electrical Stimulation,Gait Training,Hot Pack/Cold Pack,Manual Therapy,Neuro Re-education,Patient/ Caregiver Education,Therapeutic Activities, Therapeutic Exercise,Other Other Interventions taping PT Services Indicated Yes Treatment Frequency and 2x/wk for 10 visits Duration These treatments will address the objective and functional deficits as defined above. The patient will be advanced safely and appropriately in order for the patient to progress towards his/her prior level of function. Additional exercises will be introduced and as well as a comprehensive home exercise program upon discharge, if needed, ?to ensure carryover of functional gains achieved in the clinic. This treatment plan has been reviewed and agreement upon by the patient.
--- NOTE | 2024-07-21 10:53 | OPREHPOC ---
Outpatient Therapy Plan of Care This is a Multidisciplinary Plan of Care that may contain components documented by all disciplines (PT, OT, and ST.) PT Problem 1 PT Problem #1 Knowledge Deficit PT Goal 1 Goal / Goal Update *independent with HEP 07-21-24 progress goal met continue towards goal to progress HEP and gait training Target Visit 16 PT Problem 2 PT Problem #2 Pain PT Goal 1 Goal / Goal Update * pt report pain at worst of L LE 5/10 07-21-24 progress goal not met: L knee 8/10 and L ankle 4/10 NEW GOALS: 1* pain rating at worst L knee 3/10 2* pain rating at worst L ankle 2/10 Target Visit 16 PT Problem 3 PT Problem #3 Impaired Strength PT Goal 1 Goal / Goal Update *increase strength of L LE to gross 4+/5, improve transfer and gait skills 07-21-24 progress goal not met: gross L LE 4/5 continue towards goal Target Visit 16 PT Problem 4 PT Problem #4 Impaired Functional Mobility PT Goal 1 Goal / Goal Update 1* transfer sit/stand without use of UE from 18 seat x 5 reps 2* 2 minute walking test distance of 300', with cane 3* pt report walking short distances in community 07-21-24 progress goals 1,3 met NEW GOALS: 1* 5 reps sit/stand 22 seconds 2* 2 minute walking test distance with 1 crutch 175' 3* pt ambulate without assistive device with good gait pattern 150' Target Visit 16
--- NOTE | 2024-07-21 10:53 | PTOPPROG ---
Assessment and note entered by Kiersten Richards, PT Assessment Status Progress ICD-10 Condition Codes (PT) Pain in left knee M25.562,Difficulty Walking R26.2 ,Abnormalities of gait and mobility R26.9,Weakness R53.1,Encounter for other orthopedic aftercare Z47.89 Other ICD-10 Condition Codes ( S82.209Atibial fracture;S82.409A fibula fracture- PT) with ORIF Subjective Information have progressed but still not back to normal yet; can be moving around about 45-60 minutes then have to sit and rest; only go out in public when have someone with me in smaller store, do not trust other people around me when using the crutches; use motorized scooter for shopping at bigger stores; the ortho dr says everything is healing OK; have a skin rash on zhao and Dr Zapata told me how to take care of it; sometimes L knee gives out with walking, able to catch myself with crutch; using the crutches all the time-- either 1 or 2 crutches. PAIN: range in the past week 0-8/10; medial and lateral knee; pain range of L ankle 0-4/10 increase pain: putting on shoe by placing L foot on R thigh; walking/standing about 45-60 minutes then have to sit down, put full weight on L leg in standing decrease pain: sit,rest, tylenol 1-2 x/day, ice PRN, elevate have swelling in L leg-- reinforced elevation and use of compression sock Assessment PT Clinical Summary Laura has received 10 PT sessions. She has improved in all areas: pain L knee 0-8/10 and L ankle 0-4/10; LE self assessment functional score of 58% limitation in activity level; reported tolerance with standing/walking at home 45-60 minutes with use of 1 or 2 forearm crutches; is walking short distances in community with crutches, when she has someone with her, otherwise uses the motorized scooter in the stores; 5 reps sit/stand without use of UE in 36 seconds; 2 minute walking test distance of 140' with one forearm crutch; L knee active ROM is 0-120', with pain increase with end range of knee flexion; gross strength of L hip and knee 4-/5; is not able to tolerate full WB on L LE due to pain and weakness. The goals were partially achieved. Continue PT treatment--pt goal to walk without crutches and not have pain in L knee or ankle. Plan of Care Interventions Electrical Stimulation,Gait Training,Hot Pack/Cold Pack,Manual Therapy,Neuro Re-education,Patient/ Caregiver Education,Therapeutic Activities, Therapeutic Exercise,Other Other Interventions taping PT Services Indicated Yes Treatment Frequency and 1x/wk for 6 visits Duration These treatments will address the objective and functional deficits as defined above. The patient will be advanced safely and appropriately in order for the patient to progress towards his/her prior level of function. Additional exercises will be introduced and as well as a comprehensive home exercise program upon discharge, if needed, ?to ensure carryover of functional gains achieved in the clinic. This treatment plan has been reviewed and agreement upon by the patient.
--- NOTE | 2024-08-17 15:20 | PCPTNOTE ---
NEW order received from Dr Pappas for aquatic therapy. Added aquatic exercises to plan of treatment.
== END 2024-09-12 23:59 | disposition home or self-care (01) ==
LOC: ANHPT 12:00
PROVIDERS: PCP Family Medicine; Visit Provider Family Medicine
DX: S82.209D Unspecified fracture of shaft of unspecified tibia, subsequent encounter for closed fracture with routine healing (principal); S82.409D Unspecified fracture of shaft of unspecified fibula, subsequent encounter for closed fracture with routine healing
CPT/HCPCS: 97014; 97110; 97113; 97140; 97161; 97530; G0283

== ENCOUNTER 2024-09-13 13:36 | Outpatient (RCR) | payer MEDICARE, MEDICAID, SELFPAY ==
--- NOTE | 2024-09-13 13:32 | OPREHPOC ---
Outpatient Therapy Plan of Care This is a Multidisciplinary Plan of Care that may contain components documented by all disciplines (PT, OT, and ST.) PT Problem 1 PT Problem #1 Knowledge Deficit PT Goal 1 Goal / Goal Update *independent with HEP 07-21-24 progress goal met continue towards goal to progress HEP and gait training 09-13-24 d/c goal met Target Visit 16 Progress Met PT Problem 2 PT Problem #2 Pain PT Goal 1 Goal / Goal Update * pt report pain at worst of L LE 5/10 07-21-24 progress goal not met: L knee 8/10 and L ankle 4/10 NEW GOALS: 1* pain rating at worst L knee 3/10 2* pain rating at worst L ankle 2/10 09-13-24 d/c goal not met, 6/10 at worst Target Visit 16 Progress Not Met PT Problem 3 PT Problem #3 Impaired Strength PT Goal 1 Goal / Goal Update *increase strength of L LE to gross 4+/5, improve transfer and gait skills 07-21-24 progress goal not met: gross L LE 4/5 continue towards goal 09-13-24 d/c goal not met; hip and knee 4-/5 Target Visit 16 Progress Not Met PT Problem 4 PT Problem #4 Impaired Functional Mobility PT Goal 1 Goal / Goal Update 1* transfer sit/stand without use of UE from 18 seat x 5 reps 2* 2 minute walking test distance of 300', with cane 3* pt report walking short distances in community 07-21-24 progress goals 1,3 met NEW GOALS: 1* 5 reps sit/stand 22 seconds 2* 2 minute walking test distance with 1 crutch 175' 3* pt ambulate without assistive device with good gait pattern 150' 09-13-24 d/c goal 2 met; #1 is 34 seconds; #3 partially-- can walk without device but poor gait pattern Target Visit 16 Progress Partially Met
--- NOTE | 2024-09-13 13:32 | PTOPDC ---
Assessment and note entered by Kiersten Richards, PT Assessment Status Discharge ICD-10 Condition Codes (PT) Pain in left knee M25.562,Difficulty Walking R26.2 ,Abnormalities of gait and mobility R26.9,Weakness R53.1,Encounter for other orthopedic aftercare Z47.89 Other ICD-10 Condition Codes ( S82.209Atibial fracture;S82.409A fibula fracture- PT) with ORIF Subjective Information it has been 4 months since had my surgery; still have pain in hamstring- really hurts; doing the exercises at home, not as much as I shoulder, about 2x/wk and pool exercises in my pool when the weather is good; use one crutch when going out, but at home, go without it and waddle around, reaching out for something to hold onto; stairs are really hard still; do not trust my L leg; go to see the dr this Thursday; Reported Pain Level Pain Score 1: Self Report Pain Score 3: Self Report Additional Pain Score Comments pain range in the past week 0-6/10; hurts, stiff, tight posterior knee, medial knee, inferior to patella and lateral ankle; Additional Pain Score Comments L knee hurting and pops, kinesiotape helps; have had some pain where the original break is over anterior zhao; Assessment PT Clinical Summary Laura has received a total of 16 PT sessions. Compared to the last assessment: pain rating from 0-8/10 to 0-6/10 in L knee and ankle; self rating with LE functional assessment from 58 to 66% limitation in activity level; 5 reps sit/stand time from 36 to 34 seconds, without use of UE's; 2 minute walking test distance with one forearm crutch from 140 to 225'; with gait--does not shift weight onto her L LE; on stairs, uses one hand railing and single step pattern; gross strength of L hip and knee is 3+ to 4-/5; education completed for HEP and gait training. The goals were partially met. Discharge PT. She is to continue with her HEP and increase activity level as tolerated. Plan of Care PT Services Indicated No
== END 2024-09-13 15:37 | disposition home or self-care (01) ==
LOC: ANHPT 13:36
PROVIDERS: PCP Family Medicine; Visit Provider Family Medicine
DX: S82.202A Unspecified fracture of shaft of left tibia, initial encounter for closed fracture (principal); S82.402A Unspecified fracture of shaft of left fibula, initial encounter for closed fracture
CPT/HCPCS: 97110; 97116; 97530

== ENCOUNTER 2024-11-29 00:20 | Day surgery (SDC) | payer MEDICARE, OTHER, SELFPAY ==
[2024-11-14 14:37] VITALS: BMI 36.8
--- OUTSIDE RECORDS SUMMARY | 2024-11-29 00:22 | XMS_ITS | Clinical Summary ---
Author Organization [facility] Address [address] [facility], [address] [address] Phone Care Team Providers Care Block Trimmer Name Role Phone Dell Smallwood DO Primary Care Provider [phone] Allergies Active Allergy Reactions Criticality Noted Date [...] Take 1,000 Units by mouth daily. 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 on file Not on file Not on file Last Filed Vital Signs Vital Sign Reading Time Taken Comments Blood Pressure 124/80 01/27/2019 1:41 PM ANIMATION CAMERA OPERATOR Pulse 84 01/27/2019 1:41 PM ANIMATION CAMERA OPERATOR Temperature 37.1 C (98.7 F) 01/27/2019 1:41 PM ANIMATION CAMERA OPERATOR Respiratory Rate 18 07/26/2018 1:36 PM CDT Oxygen Saturation 98% 01/27/2019 1:41 PM ANIMATION CAMERA OPERATOR Inhaled Oxygen Concentration - - Weight 106.1 kg (234 lb) 01/27/2019 1:41 PM ANIMATION CAMERA OPERATOR Height 172.7 cm (5' 8) 01/27/2019 1:41 PM ANIMATION CAMERA OPERATOR Body Mass Index 35.58 01/27/2019 1:41 PM ANIMATION CAMERA OPERATOR Plan of Treatment Health Maintenance Due Date [...] Colonoscopy 10/14/2022 10/14/2017 Colorectal Cancer Screening 10/14/2022 Influenza Immunization (#1) 2024 SARS-COV-2 Immunization ( season) 2024 Hepatitis B Immunization Aged Out No [...] Insurance MED[employer]ID [employer] Care Teams Block Trimmer Relationship Specialty Start Date End Date Dell Smallwood DO [address] [facility] [address] [place] [address] PCP - General Internal Medicine 10/12/17
[2024-11-29 12:50] VITALS: BP 162/76; PULSE 74; RESP 18; TEMP 36.2; O2SAT 96; BMI 35.9
--- NOTE | 2024-11-29 13:13 | WPDANESEPPF ---
Anes - Initial Pre Proc Eval Procedure: Operation Date: 11/29/24 14:00 Proposed Procedures p Diagnostic Colonoscopy - Brayan Alejandro MD Date/Time: 11/29/24 13:13 Surgeon: Brayan Alejandro MD Pre Op Diagnosis: Noninfective gastroenteritis and colitis, unspecif Patient Data Age: 69 Gender: F Height: 1.73 m Weight: 107.1 kg Last Vital Signs Temp 36.2 C L 11/29/24 12:50 Pulse 74 11/29/24 12:50 Resp 18 11/29/24 12:50 BP 162/76 H 11/29/24 12:50 Pulse Ox 96 11/29/24 12:50 O2 Del Method Room Air 11/29/24 12:50 Allergies Allergy/AdvReac Type Severity Reaction Status Date / Time simvastatin Allergy Unknown burning Verified 11/29/24 12:58 when urinate Sulfa (Sulfonamide Allergy Unknown burning Verified 11/29/24 12:58 Antibiotics) when urinate tetracycline Allergy Unknown burning Verified 11/29/24 12:58 when urinate Home Medications ?Medication ?Instructions ?Recorded ?Confirmed ?Type ascorbate calcium (vitamin C) 500 500 mg PO DAILY 06/14/20 11/16/24 History mg tablet cholecalciferol (vitamin D3) 125 125 mcg PO DAILY 06/14/20 11/29/24 History mcg (5,000 unit) capsule lactobacillus combination no.8 3 3,000 mmu cells PO DAILY 06/14/20 11/29/24 History billion cell capsule (Adult Probiotic) omega-3 fatty acids 1,000 mg 1,200 mg PO DAILY 11/04/23 11/29/24 History capsule (Fish Oil Concentrate) levothyroxine 125 mcg tablet See Rx Instructions .Route 08/05/24 11/29/24 Rx .COMPLEX #90 tabs famotidine 40 mg tablet See Rx Instructions .Route .COMPLEX 11/14/24 11/29/24 History Patient hx anesthesia problems: none Family hx anesthesia problems: none Results Review: All pre-operative results and documents have been reviewed as part of the pre-operative evaluation. [facility] Past Medical History Medical History (Updated 11/28/24 @ 09:52 by Jer Watson DO) History of heart attack coronary spasm Tibia/fibula fracture Adenomatous colon polyp Abdominal pain Hyperparathyroidism Irritable bowel syndrome with diarrhea Hypercalcemia Surgical History Surgical History Status post open reduction and internal fixation (ORIF) of fracture (~05/12/24) Open ORIF Tib/Fib Fracture History of cataract surgery January 2021 Family History Family History Other Family history of coronary artery disease Social History Social History Smoking packs per day: 3 Smoking cigarettes per day: 60.0 Years smoked: 40 Smoking pack-years: 120.00 Smoking status: Former smoker Tobacco type: cigarettes Smoking end date: 11/23/07 Alcohol intake: former Substance use: never Substance use type: does not use Do You Feel Safe in your Home?: Yes Lack of Transportation: No Lack of Food: Never True Current Housing: I Have Housing Concerned About Future Housing: No Difficulty Paying Gas/Electric Bills: No Difficulty Paying for Meds: No Currently Unemployed: No Education: High School Diploma/GED Difficulty w/ Childcare or Family Care: No Anes - Eval Final PreProcedure Day of Procedure 11/29/24 13:13 Patient weight: obese Heart: regular rate and rhythm Lungs: clear to auscultation Airway: Mallampati scale class II Neurological: alert and oriented Last oral intake: >/= 8 hours ASA classification: III Emergent: no Anesthetic plan: proceed Anesthesia type and monitoring: general GIVS and standard monitoring Results Review: All pre-operative results and documents have been reviewed as part of the pre-operative evaluation. Informed Consent: The patient's anesthetic plan and its attendant risks and benefits were discussed with the patient/family/POA. Questions were solicited and answers provided to the satisfaction of the patient/family/POA.
[2024-11-29] MEDS: LACTATED RINGERS 1,000 ML 150 ML IV CONT (13:19)
--- NOTE | 2024-11-29 13:46 | PM.IMHP ---
H&P: HPI History of Present Illness Date/Time: 11/29/24 13:46 Chief Complaint: history of colon polyps Narrative: The patient has a history of colonic polyps, the last colonoscopy was in 2017. Review of Systems Review of Systems: All systems reviewed & are unremarkable except as noted in HPI and below PMFSH Past Medical History Medical History (Updated 11/28/24 @ 09:52 by Jer Watson DO) History of heart attack coronary spasm Tibia/fibula fracture Adenomatous colon polyp Abdominal pain Hyperparathyroidism Irritable bowel syndrome with diarrhea Hypercalcemia Surgical History Surgical History (Reviewed 11/16/24 @ 10:34 by Darlene Moncada [facility]) Status post open reduction and internal fixation (ORIF) of fracture (~05/12/24) Open ORIF Tib/Fib Fracture History of cataract surgery January 2021 Family History Family History Other Family history of coronary artery disease Social History Social History (Reviewed 11/16/24 @ 10:34 by Darlene Moncada [facility]) Smoking packs per day: 3 Smoking cigarettes per day: 60.0 Years smoked: 40 Smoking pack-years: 120.00 Smoking status: Former smoker Tobacco type: cigarettes Smoking end date: 11/23/07 Alcohol intake: former Substance use: never Substance use type: does not use Do You Feel Safe in your Home?: Yes Lack of Transportation: No Lack of Food: Never True Current Housing: I Have Housing Concerned About Future Housing: No Difficulty Paying Gas/Electric Bills: No Difficulty Paying for Meds: No Currently Unemployed: No Education: High School Diploma/GED Difficulty w/ Childcare or Family Care: No Meds Home Medications and Allergies Home Medications ?Medication ?Instructions ?Recorded ?Confirmed ?Type ascorbate calcium (vitamin C) 500 500 mg PO DAILY 06/14/20 11/16/24 History mg tablet cholecalciferol (vitamin D3) 125 125 mcg PO DAILY 06/14/20 11/29/24 History mcg (5,000 unit) capsule lactobacillus combination no.8 3 3,000 mmu cells PO DAILY 06/14/20 11/29/24 History billion cell capsule (Adult Probiotic) omega-3 fatty acids 1,000 mg 1,200 mg PO DAILY 09/11/24 10/07/25 History capsule (Fish Oil Concentrate) levothyroxine 125 mcg tablet See Rx Instructions .Route 08/05/24 11/29/24 Rx .COMPLEX #90 tabs famotidine 40 mg tablet See Rx Instructions .Route .COMPLEX 11/14/24 11/29/24 History Allergies Allergy/AdvReac Type Severity Reaction Status Date / Time simvastatin Allergy Unknown burning Verified 11/29/24 12:58 when urinate Sulfa (Sulfonamide Allergy Unknown burning Verified 11/29/24 12:58 Antibiotics) when urinate tetracycline Allergy Unknown burning Verified 11/29/24 12:58 when urinate Vital Signs Vital Signs - 24 hr 11/29/24 12:50 Temperature 97.2 F L Pulse Rate 74 Respiratory Rate 18 Blood Pressure 162/76 H Pulse Oximetry 96 Oxygen Delivery Room Air Exam Const: General: cooperative and healthy appearing Resp: Effort & Inspection: normal respiratory effort and able to speak in complete sentences Auscultation: clear to auscultation bilaterally Cardio: Rate: regular rate Rhythm: regular rhythm GI: Inspection: normal to inspection GI Palp: No No hepatosplenomegaly present Auscultation: normal bowel sounds Rectal Exam: deferred Skin: General skin exam: normal color Psych: Appearance: grossly normal Mental Status: mental status grossly normal Assessment and Plan Assessment and plan (1) Adenomatous colon polyp: Code(s): D12.6 - Benign neoplasm of colon, unspecified Status: Acute Assessment and Plan: The patient is deemed a good candidate for the procedure. Consent signed. Will proceed.
[2024-11-29] MEDS: SIMETHICONE ORAL SUSPENSION 20 MG/0.3 ML 30 ML BOTTLE 0.6 ML IRRIGATION (14:24)
--- NOTE | 2024-11-29 14:31 | S_PTH ---
PATIENT: Laura Frey LOC: [facility] U#:[id number] AGE/SX: 69/F ROOM: RE11/29/[address]: Brayan Alejandro MD : 1955 BED: DIS: 11/29/2024 SPEC #: [id number] RECD: 11/30/24 10:53 STATUS: LOLI REQ #: [id number] JOSUE: 11/29/24 14:[address]: Brayan Alejandro DEPT: [facility] Surgical RECD BY: Thu Granados ENTERED: 11/30/24 10:53 SP TYPE: Surgical OTHR DR: Cortes Zapata MD Tissues: A - Colon Polypectomy B - Colon Polypectomy C - Colon Polypectomy Procedures: Hematoxylin and Eosin Stain Gross and Microscopic Level 4
[2024-11-29 14:38] VITALS: BP 139/64; PULSE 63; RESP 18; O2SAT 95
[2024-11-29 14:48] VITALS: BP 125/92; PULSE 61; RESP 17; O2SAT 98
[2024-11-29 14:58] VITALS: BP 147/83; PULSE 61; RESP 21; O2SAT 98
== END 2024-11-29 15:31 | disposition home or self-care (01) ==
PROVIDERS: PCP Family Medicine; Referring Provider Nurse Practitioner Family; Visit Provider Internal Medicine Gastroenterology
PROC: 0DJD8ZZ Inspection of Lower Intestinal Tract, Via Natural or Artificial Opening Endoscopic (ICD-10-PCS; CPT 45378; principal; 2024-11-29 14:00)
DX: Z12.11 Encounter for screening for malignant neoplasm of colon (principal); D12.2 Benign neoplasm of ascending colon; D12.4 Benign neoplasm of descending colon; D12.5 Benign neoplasm of sigmoid colon; K63.5 Polyp of colon; K64.8 Other hemorrhoids; I25.2 Old myocardial infarction; E21.3 Hyperparathyroidism, unspecified; K58.0 Irritable bowel syndrome with diarrhea; E66.9 Obesity, unspecified; Z68.35 Body mass index [BMI] 35.0-35.9, adult; Z98.890 Other specified postprocedural states; Z87.891 Personal history of nicotine dependence; Z82.49 Family history of ischemic heart disease and other diseases of the circulatory system
CPT/HCPCS: 45385; 88305; J2003; J2704; J7120